=== PATIENT | male | born 1950 | race Caucasian/White ===

== ENCOUNTER 2019-09-12 16:20 | Emergency (ER) | payer OTHER ==
[2019-09-12] MEDS ORDERED: MORPHINE 2 MG/ML SYR ONE (17:21)
[2019-09-12] MEDS ORDERED: ONDANSETRON 4 MG/2 ML VIAL ONE (17:21)
[2019-09-12] MEDS ORDERED: FAMOTIDINE 20 MG/2 ML VIAL IV ONE (17:21)
[2019-09-12] MEDS ORDERED: NA CHLORIDE 0.9% 1,000 ML ONE (17:21)
[2019-09-12 17:23] LABS: Absolute Lymphocytes (CBC) 0.8 K/uL (0.7-4.9); Basophils % 0.7 % (0-1.3); Hematocrit 44.7 % (39.6-49.0); Lymphocytes % 7.3 % (15.3-44.8); MPV 7.9 fL (7.6-11.3); RBC Red Blood Cell Count 4.88 M/uL (4.33-5.43)
--- NOTE | 2019-09-12 17:32 | RAD REPORT ---
EXAM DESCRIPTION: RAD - Chest Single View - 09/12/2019 5:19 pm CLINICAL HISTORY: ABDOMINAL DISTENTION Chest pain. COMPARISON: No comparisons FINDINGS: Portable technique limits examination quality. The lungs are grossly clear. The heart is normal in size. No displaced fractures. IMPRESSION: No acute intrathoracic process suspected.
[2019-09-12 17:48] LABS: ALT/SGPT 29 U/L (12-78); AST/SGOT 16 U/L (15-37); Albumin 3.9 g/dL (3.4-5.0); Alkaline Phosphatase 66 U/L (45-117); BUN Blood Urea Nitrogen 12 mg/dL (7-18); Bicarbonate 27 mmol/L (21-32); Bilirubin Direct 0.3 mg/dL (0-0.2); Bilirubin Total 0.8 mg/dL (0.2-1.0); Glucose Level 118 mg/dL (74-106); Lipase 84 U/L (73-393); Magnesium 2.1 mg/dL (1.8-2.4); NT PRO-BNP 244 pg/mL (<125); Potassium 4.1 mmol/L (3.5-5.1); Protein, Total 7.4 g/dL (6.4-8.2); Sodium Level 139 mmol/L (136-145); Troponin (Emerg Dept Use Only) < 0.02 ng/mL (0.0-0.045)
[2019-09-12 17:51] LABS: Protime INR 0.96
--- NOTE | 2019-09-12 18:18 | RAD REPORT ---
EXAM DESCRIPTION: US - Abdomen Exam Limited - 09/12/2019 5:53 pm CLINICAL HISTORY: ABD PAIN COMPARISON: No comparisons FINDINGS: The gallbladder demonstrates multiple shadowing gallstones No pericholecystic fluid or gal lbladder wall thickening. The common bile duct is normal measuring 3 mm. The liver demonstrates no findings of intrahepatic biliary dilatation. IMPRESSION: Cholelithiasis.
--- NOTE | 2019-09-12 18:22 | ER ---
Nurse's Notes [facility] Name: Puneet Ferrer Age: 69 yrs Sex: Male : 1950 Arrival Date: 09/12/2019 Time: 16:23 Bed 24 Private MD: Diagnosis: Abdominal tenderness;Cholelithiasis Presentation: 09/12 16:28 Presenting complaint: Patient states: abd pain since this morning, nausea. Transition la1 of care: patient was not received from another setting of care. Onset of symptoms was September 12, 2019. Risk Assessment: Do you want to hurt yourself or someone else? Patient reports no desire to harm self or others. Initial Sepsis Screen: Does the patient meet any 2 criteria? HR > 90 bpm. Does the patient have a suspected source of infection? No. Patient's initial sepsis screen is negative. Care prior to arrival: None. 16:28 Method Of Arrival: Ambulatory la1 16:28 Acuity: KARLA 3 la1 Historical: - Allergies: 16:29 NKDA; la1 - PMHx: 16:29 None; la1 - Immunization history:: Adult Immunizations up to date. - Social history:: Smoking status: Patient/guardian denies using tobacco. - Family history:: not pertinent. - Ebola Screening: : No symptoms or risks identified at this time. Screenin:45 Abuse screen: Denies threats or abuse. Denies injuries from another. Nutritional aj1 screening: No deficits noted. Tuberculosis screening: No symptoms or risk factors identified. Fall Risk None identified. Assessment: 16:45 General: Appears in no apparent distress. comfortable, Behavior is calm, cooperative, aj1 appropriate for age. Pain: Complains of pain in right upper quadrant and epigastric area Pain does not radiate. Neuro: Level of Consciousness is awake, alert, obeys commands, Oriented to person, place, time, situation. Cardiovascular: Patient's skin is warm and dry. Respiratory: Airway is patent Respiratory effort is even, unlabored, Respiratory pattern is regular, symmetrical. GI: Abdomen is distended, Bowel sounds present X 4 quads. Abdomen is tender to palpation in right upper quadrant and epigastric area Reports upper abdominal pain, bloating, nausea, Patient currently denies diarrhea, vomiting. : No signs and/or symptoms were reported regarding the genitourinary system. EENT: No signs and/or symptoms were reported regarding the EENT system. Derm: Skin is pink, warm \T\ dry. Rash noted that is red, on face. Musculoskeletal: No signs and/or symptoms reported regarding the musculoskeletal system. Circulation, motion, and sensation intact. 17:36 Reassessment: Patient appears in no apparent distress at this time. No changes from aj1 previously documented assessment. Patient and/or family updated on plan of care and expected duration. Pain level reassessed. Patient is alert, oriented x 3, equal unlabored respirations, skin warm/dry/pink. 18:30 Reassessment: Patient appears in no apparent distress at this time. No changes from aj1 previously documented assessment. Patient and/or family updated on plan of care and expected duration. Pain level reassessed. Patient is alert, oriented x 3, equal unlabored respirations, skin warm/dry/pink. 19:30 Reassessment: Patient states that he does not want to be admitted over night. He would aj1 like to go home and follow up with Dr. Perez. Notified Dr. Perez of patient request, who will go see the patient. 19:45 Reassessment: Dr. Perez at bedside to evaluate patient. aj1 20:03 Reassessment: Patient is okay to be discharged home, patient will report to day surgery aj1 at 0900 tomorrow for laproscopic cholecystectomy. yard labor supervisor VANDANA Plascencia, notified and states that he will place patient on surgery schedule. Patient is concerned about getting a ride home after surgery tomorrow. Patient states that he can call himself a cab, Notified oracle data warehouse developer, VANDANA Plascencia who spoke with orthotic/prosthetic practitioner to approve patient calling himself a cab after surgery. 20:05 Reassessment: Patient to finish Zosyn infusion prior to discharge per Dr. Perez. aj1 21:03 Reassessment: Patient appears in no apparent distress at this time. No changes from aj1 previously documented assessment. Patient and/or family updated on plan of care and expected duration. Pain level reassessed. Patient is alert, oriented x 3, equal unlabored respirations, skin warm/dry/pink. Vital Signs: 16:29 BP 144 / 97; Pulse 115; Resp 16; Temp 99.2; Pulse Ox 100% on R/A; Weight 99.79 kg; la1 Height 5 ft. 11 in. (180.34 cm); 17:37 BP 112 / 81; Pulse 93; Resp 18; Pulse Ox 95% on R/A; aj1 18:30 BP 153 / 94; Pulse 93; Resp 18; Pulse Ox 98% on R/A; aj1 19:30 BP 149 / 87; Pulse 91; Resp 18; Pulse Ox 100% on R/A; aj1 20:30 BP 145 / 90; Pulse 90; Resp 18; Pulse Ox 97% on R/A; aj1 16:29 Body Mass Index 30.68 (99.79 kg, 180.34 cm) la1 ED Course: 16:23 Patient arrived in ED. as 16:29 Triage completed. la1 16:29 Arm band placed on left wrist. la1 16:30 Shahid Tijerina MD is Attending Physician. virgen 16:37 Cristina Falcon, RN is Primary Nurse. aj1 16:45 No provider procedures requiring assistance completed. aj1 17:15 Initial lab(s) drawn, by vt, sent to lab. Inserted saline lock: 20 gauge in right jp3 wrist, using aseptic technique. Patient maintains SpO2 saturation greater than 95% on room air. 17:16 Bed in low position. Call light in reach. Side rails up X 1. Side rails up X2. Warm jp3 blanket given. Verbal reassurance given. campus monitor on. Pulse ox on. NIBP on. 17:16 Basic Metabolic Panel Sent. jp3 17:25 XRAY Chest (1 view) In Process Unspecified. EDMS 17:35 EKG done, by ED staff, reviewed by Shahid Tijerina MD. jp3 17:53 US Abdomen Limited In Process Unspecified. EDMS 18:09 Puneet Perez MD is Hospitalizing Provider. ivrgen 20:30 Puneet Perez MD is Referral Physician. virgen 20:30 Referral Physician role handed off by Puneet Perez MD virgen 20:30 Puneet Perez MD is Referral Physician. virgen 20:59 IV discontinued, intact, bleeding controlled, No redness/swelling at site. Pressure aj1 dressing applied. Administered Medications: 17:28 Drug: NS 0.9% 1000 ml Route: IV; Rate: 1 bolus; Site: right wrist; aj1 21:02 Follow up: IV Status: Completed infusion; IV Intake: 1000ml aj1 17:29 Drug: Pepcid 20 mg Route: IVP; Site: right wrist; aj1 18:30 Follow up: Response: No adverse reaction aj1 17:29 Drug: morphine 2 mg {Note: RASS score 0, patient is alert.} Route: IVP; Site: right aj1 wrist; 18:30 Follow up: Response: No adverse reaction; RASS: Alert and Calm (0) aj1 17:29 Drug: Zofran 4 mg Route: IVP; Site: right wrist; aj1 18:30 Follow up: Response: No adverse reaction aj1 18:43 Drug: Zosyn 3.375 grams Route: IVPB; Infused Over: 60 mins; Site: right wrist; aj1 21:03 Follow up: IV Status: Completed infusion; IV Intake: 100ml aj1 Intake: 21:02 IV: 1000ml; Total: 1000ml. aj1 21:03 IV: 100ml; Total: 1100ml. aj1 Outcome: 18:22 Decision to Hospitalize by Provider. [facility] 20:31 Discharge ordered by . [facility] 21:01 Discharged to home ambulatory. aj1 21:01 Condition: good 21:01 Discharge instructions given to patient, Instructed on discharge instructions, follow up and referral plans. medication usage, Demonstrated understanding of instructions, follow-up care, medications, Prescriptions given X 3. 21:03 Patient left the ED. aj1 Signatures: Dispatcher [employer] EDMS Cristina Falcon RN RN aj1 Shahid Tijerina MD MD cha Martinez, Amelia as Attema, Lee, RN RN la1 Simone Samuel jp3
--- NOTE | 2019-09-12 18:23 | EDPHYS ---
Physician Documentation [facility] Name: Puneet Ferrer Age: 69 yrs Sex: Male : 1950 Arrival Date: 09/12/2019 Time: 16:23 Bed 24 Private MD: ED Physician Shahid Tijerina HPI: 09/12 16:51 This 69 yrs old Male presents to ER via Ambulatory with complaints of virgen Epigastric Pain, Abdominal Pain. 16:51 The patient presents with abdominal pain in the epigastric area, in the upper abdomen, virgen abdominal distention in the upper abdomen, in the lower abdomen. Onset: The symptoms/episode began/occurred 1 day(s) ago. The symptoms do not radiate. Associated signs and symptoms: none. The symptoms are described as constant, crampy. Modifying factors: The symptoms are alleviated by nothing, the symptoms are aggravated by nothing. Severity of pain: At its worst the pain was moderate in the emergency department the pain. The patient has not experienced similar symptoms in the past. Historical: - Allergies: 16:29 NKDA; la1 - PMHx: 16:29 None; la1 - Immunization history:: Adult Immunizations up to date. - Social history:: Smoking status: Patient/guardian denies using tobacco. - Family history:: not pertinent. - Ebola Screening: : No symptoms or risks identified at this time. ROS: 16:51 Constitutional: Negative for fever, chills, and weight loss, Eyes: Negative for injury, virgen pain, redness, and discharge, ENT: Negative for injury, pain, and discharge, Neck: Negative for injury, pain, and swelling, Cardiovascular: Negative for chest pain, palpitations, and edema, Respiratory: Negative for shortness of breath, cough, wheezing, and pleuritic chest pain, Back: Negative for injury and pain, : Negative for injury, bleeding, discharge, and swelling, MS/Extremity: Negative for injury and deformity, Skin: Negative for injury, rash, and discoloration, Neuro: Negative for headache, weakness, numbness, tingling, and seizure, Psych: Negative for depression, anxiety, suicide ideation, homicidal ideation, and hallucinations, Allergy/Immunology: Negative for hives, rash, and allergies, Hematologic/Lymphatic: Negative for swollen nodes, abnormal bleeding, and unusual bruising. 16:51 Abdomen/GI: Positive for abdominal pain, of the epigastric area and right upper quadrant. Exam: 16:51 Constitutional: This is a well developed, well nourished patient who is awake, alert, virgen and in no acute distress. Head/Face: Normocephalic, atraumatic. Eyes: Pupils equal round and reactive to light, extra-ocular motions intact. Lids and lashes normal. Conjunctiva and sclera are non-icteric and not injected. Cornea within normal limits. Periorbital areas with no swelling, redness, or edema. ENT: Nares patent. No nasal discharge, no septal abnormalities noted. Tympanic membranes are normal and external auditory canals are clear. Oropharynx with no redness, swelling, or masses, exudates, or evidence of obstruction, uvula midline. Mucous membranes moist. Neck: Trachea midline, no thyromegaly or masses palpated, and no cervical lymphadenopathy. Supple, full range of motion without nuchal rigidity, or vertebral point tenderness. No Meningismus. Chest/axilla: Normal chest wall appearance and motion. Nontender with no deformity. No lesions are appreciated. Cardiovascular: Regular rate and rhythm with a normal S1 and S2. No gallops, murmurs, or rubs. Normal PMI, no JVD. No pulse deficits. Respiratory: Lungs have equal breath sounds bilaterally, clear to auscultation and percussion. No rales, rhonchi or wheezes noted. No increased work of breathing, no retractions or nasal flaring. Back: No spinal tenderness. No costovertebral tenderness. Full range of motion. Male : Normal genitalia with no discharge or lesions. Skin: Warm, dry with normal turgor. Normal color with no rashes, no lesions, and no evidence of cellulitis. MS/ Extremity: Pulses equal, no cyanosis. Neurovascular intact. Full, normal range of motion. Neuro: Awake and alert, GCS 15, oriented to person, place, time, and situation. Cranial nerves II-XII grossly intact. Motor strength 5/5 in all extremities. Sensory grossly intact. Cerebellar exam normal. Normal gait. Psych: Awake, alert, with orientation to person, place and time. Behavior, mood, and affect are within normal limits. 16:51 Abdomen/GI: Inspection: distension, Bowel sounds: normal, active, Palpation: mild abdominal tenderness, in the epigastric area and right upper quadrant, Liver: no appreciated palpable abnormalities, Hernia: not appreciated. Vital Signs: 16:29 BP 144 / 97; Pulse 115; Resp 16; Temp 99.2; Pulse Ox 100% on R/A; Weight 99.79 kg; la1 Height 5 ft. 11 in. (180.34 cm); 17:37 BP 112 / 81; Pulse 93; Resp 18; Pulse Ox 95% on R/A; aj1 18:30 BP 153 / 94; Pulse 93; Resp 18; Pulse Ox 98% on R/A; aj1 19:30 BP 149 / 87; Pulse 91; Resp 18; Pulse Ox 100% on R/A; aj1 20:30 BP 145 / 90; Pulse 90; Resp 18; Pulse Ox 97% on R/A; aj1 16:29 Body Mass Index 30.68 (99.79 kg, 180.34 cm) la1 MDM: 16:30 Patient medically screened. [facility] 16:56 Data reviewed: vital signs, nurses notes, lab test result(s), EKG, radiologic studies, [facility] plain films. 20:28 ED course: dr fuentes saw and examined the patient, want patient dc and to follow up in [facility] the morning. 09/12 16:49 Order name: Basic Metabolic Panel [facility] 09/12 16:49 Order name: CBC with Diff; Complete Time: 17:43 [facility] 09/12 16:49 Order name: LFT's; Complete Time: 18:07 [facility] 09/12 16:49 Order name: Magnesium; Complete Time: 18:07 [facility] 09/12 16:49 Order name: NT PRO-BNP; Complete Time: 18:07 [facility] 09/12 16:49 Order name: PT-INR; Complete Time: 18:07 [facility] 09/12 16:49 Order name: Troponin (emerg Dept Use Only); Complete Time: 18:07 [facility] 09/12 16:49 Order name: XRAY Chest (1 view); Complete Time: 18:07 [facility] 09/12 16:49 Order name: Lipase; Complete Time: 18:07 [facility] 09/12 16:49 Order name: US Abdomen Limited; Complete Time: 20:32 [facility] 09/12 16:50 Order name: Basic Metabolic Panel; Complete Time: 18:07 [facility] 09/12 16:49 Order name: EKG; Complete Time: 16:51 [facility] 09/12 16:49 Order name: Cardiac monitoring; Complete Time: 17:13 [facility] 09/12 16:49 Order name: EKG - Nurse/Tech; Complete Time: 17:30 [facility] 09/12 16:49 Order name: IV Saline Lock; Complete Time: 17:13 [facility] 09/12 16:49 Order name: Labs collected and sent; Complete Time: 17:14 [facility] 09/12 16:49 Order name: O2 Per Protocol; Complete Time: 17:14 [facility] 09/12 16:49 Order name: O2 Sat Monitoring; Complete Time: 17:14 [facility] 09/12 18:19 Order name: CONS Physician Consult EDMS Administered Medications: 17:28 Drug: NS 0.9% 1000 ml Route: IV; Rate: 1 bolus; Site: right wrist; [facility] 21:02 Follow up: IV Status: Completed infusion; IV Intake: 1000ml [facility] 17:29 Drug: Pepcid 20 mg Route: IVP; Site: right wrist; [facility] 18:30 Follow up: Response: No adverse reaction [facility] 17:29 Drug: morphine 2 mg {Note: RASS score 0, patient is alert.} Route: IVP; Site: right aj wrist; 18:30 Follow up: Response: No adverse reaction; RASS: Alert and Calm (0) aj1 17:29 Drug: Zofran 4 mg Route: IVP; Site: right wrist; aj1 18:30 Follow up: Response: No adverse reaction [facility] 18:43 Drug: Zosyn 3.375 grams Route: IVPB; Infused Over: 60 mins; Site: right wrist; aj1 21:03 Follow up: IV Status: Completed infusion; IV Intake: 100ml aj Disposition: 09/12/19 20:31 Discharged to Home. Impression: Abdominal tenderness, Cholelithiasis. - Condition is Stable. - Discharge Instructions: Abdominal Pain, Adult, Cholelithiasis, Cholelithiasis, [id number], Abdominal Pain, Adult, [id number]. - Prescriptions for Augmentin 875- 125 mg Oral Tablet - take 1 tablet by ORAL route every 12 hours for 7 days; 14 tablet. Bentyl 20 mg Oral Tablet - take 1 tablet by ORAL route every 6 hours As needed; 20 tablet. Pepcid 20 mg Oral Tablet - take 1 tablet by ORAL route every 12 hours for 10 days; 20 tablet. - Medication Reconciliation Form, Thank You Letter, Antibiotic Education, Prescription Opioid Use form. - Follow up: Private Physician; When: Tomorrow; Reason: Recheck today's complaints, Continuance of care, Re-evaluation by your physician. Follow up: Puneet Fuentes MD; When: 2 - 3 days; Reason: Recheck today's complaints, Continuance of care, Re-evaluation by your physician. Follow up: Puneet Fuentes MD; When: Tomorrow; Reason: Recheck today's complaints, Continuance of care, Re-evaluation by your physician. - Problem is new. - Symptoms have improved. Signatures: Dispatcher [employer] EDMS Cristina Falcon RN RN aj1 Shahid Tijerina MD MD cha Attema, Lee RN RN la1 Corrections: (The following items were deleted from the chart) 20:27 18:22 Hospitalization Ordered by Puneet Fuentes MD for Inpatient Admission. Preliminary virgen diagnosis is Abdominal tenderness; Cholecystitis; Cholelithiasis. Bed requested for Telemetry/MedSurg (Inpatient). Status is Inpatient Admission. Condition is Stable. Problem is new. Symptoms have improved. UTI on Admission? No. virgen 21:03 20:31 09/12/2019 20:31 Discharged to Home. Impression: Abdominal tenderness; aj1 Cholelithiasis. Condition is Stable. Forms are Medication Reconciliation Form, Thank You Letter, Antibiotic Education, Prescription Opioid Use. Follow up: Private Physician; When: Tomorrow; Reason: Recheck today's complaints, Continuance of care, Re-evaluation by your physician. Follow up: Puneet Fuentes; When: Tomorrow; Reason: Recheck today's complaints, Continuance of care, Re-evaluation by your physician. Problem is new. Symptoms have improved. virgen
[2019-09-12] MEDS ORDERED: PIPER/TAZO/NS 3.375gm 3.375 GM/100 ML BAG ONE (18:31)
--- NOTE | 2019-09-12 20:22 | P.CNS ---
Date of Consult: 09/12/19 PC: This 69-year-old male presents emergency room with severe right upper quadrant abdominal pain for diagnosis and treatment. HPC: Patient been having intermittent pain for the last few weeks. Pain has intensified and became very severe today. He came in to get it checked out. PMH: Enlarged prostate PSHx: Previous knee surgery SOC: Denies any allergies SYS REVIEW: No cough, wheeze, shortness of breath. No chest pain or palpitations. Denies any change in bowel habit. Patient is very independent, lives by himself, and has a puppy dog at home locked up in a cage.. O/E awake alert vital signs are stable comfortable at the moment HEENT: Not jaundiced Chest: Clear ABD: Soft nontender at the moment LOCO: Intact DATA: Has documented gallstones, white cell count 11,000 IMPRESSION: The sedation as coli lithiasis with biliary colic. PLAN: I was wanting to admit this patient to the hospital and prepping for surgery in the morning. He has had problem as he has an animal at home that is 7-month-old and he does not 1 0 leave it alone. He has requested that he be allowed to go to the house take care of his animal and return in the morning for outpatient surgery. He is currently stable at the moment, his vital signs remain stable. He would also like to pickle pumper his home medications and by some groceries so he can take care of himself after surgery as he has no one at home. (there are neighbors around). He has been scheduled for the OR in the morning, and he will come in for his surgery. Obviously if anything changes she will immediately call 911 and allowed them to bring him in, but he is happy with this current plan.
[2019-09-12 21:34] VITALS: TEMP 99.2
[2019-09-12 21:38] VITALS: BP 145/90; O2SAT 97
--- NOTE | 2019-09-13 05:30 | EKG ---
Test Date: 2019-09-12 Test Time: 17:23:19 Industrial Machine Operator: KAVIN MEASUREMENT RESULTS: Intervals: Rate: 96 NV: 176 QRSD: 86 QT: 368 QTc: 464 [place]: P: 50 NV: 176 QRS: -12 T: 33 INTERPRETIVE STATEMENTS: Sinus rhythm with premature atrial complexes Otherwise normal ECG No previous ECG available for comparison Electronically Signed On 09-13-19 05:30:08 HOP FARMER by Richard Alarcon
== END 2019-09-12 21:03 | disposition home or self-care (01) ==
LOC: ER 16:20 → ERHOLD 18:13 → UNDOADMIN 18:13
DX: K80.20 Calculus of gallbladder without cholecystitis without obstruction (principal)
CPT/HCPCS: 96365; 96361; 93005; 85025; 80048; 36415; 83735; 85610; 80076; 84484; 83690; 83880; 71045; 76705; 96375; 99285; 96366; J2543; J2270; J7030; J2405

== ENCOUNTER 2019-09-13 09:45 | Day surgery (SDC) | payer OTHER ==
[2019-09-13] MEDS ORDERED: CEFOXITIN/SWI 1gm 1 GM/10 ML SYR ONE (10:12)
[2019-09-13] MEDS ORDERED: Ringers Lactate 1,000 ML IV ONE ×2 (10:12→13:10)
[2019-09-13] MEDS ORDERED: dexAMETHasone 10 MG/ML VIAL ONE (10:31)
[2019-09-13] MEDS ORDERED: FENTANYL CITR 100 MCG/2 ML ONE (10:31)
[2019-09-13] MEDS ORDERED: LIDOCAINE 2% MPF 5 ML VIAL ONE (10:31)
[2019-09-13] MEDS ORDERED: ROCURONIUM 50 MG/5 ML VIAL IV ONE (10:31)
[2019-09-13] MEDS ORDERED: MIDAZOLAM HCL 2 MG/2 ML INJ ONE (10:31)
[2019-09-13] MEDS ORDERED: GLYCOPYRROLATE 0.2 MG/ML SYR ONE (10:31)
[2019-09-13] MEDS ORDERED: PROPOFOL 200 MG/20 ML VIAL IV ONE (10:31)
[2019-09-13] MEDS ORDERED: KETOROLAC 30 MG/ML INJ ONE (13:46)
[2019-09-13] MEDS ORDERED: MORPHINE 10 MG/ML VIAL ONE (14:03)
--- NOTE | 2019-09-13 14:16 | P.OP ---
Preoperative diagnosis: Cholecystitis with cholelithiasis, biliary colic Postoperative diagnosis: The same Primary procedure: Laparoscopic cholecystectomy Secondary procedure: Cholangiogram Anesthesia: General Estimated blood loss: Less than 10 cc Specimen: Gallbladder and contents Operative Technique: The patient brought the operating room placed supine on the table. After the induction of adequate general endotracheal anesthesia, the area of the abdomen was prepped with a DuraPrep solution, he was draped in usual aseptic manner. A subumbilical incision was made. This was brought down through the skin and subcutaneous tissue. The Visiport was now used to enter the peritoneal cavity and created pneumoperitoneum to approximately 12 mm of mercury. Under direct vision a 5 mm trocar was placed in the upper midline, and 2 other 5 mm trocars on the right lateral side of the abdomen. The patient was now placed in reverse Trendelenburg. He was then rolled to the left. We could visualize the right upper quadrant. There was a marked inflammatory process just beneath the right lobe of the liver. The omentum was adherent along this inferior edge. Gentle dissection allowed it to be dissected free from the liver edge. It was markedly adherent to the gallbladder itself. The omentum was now dissected off of this using again blunt sharp dissection. We were able to clear Jarred's pouch. At this point with the gallbladder was markedly distended its contents were aspirated from the gallbladder. A grasper was now placed up on the fundus and a the bone by Jarred's pouch. Applying lateral traction we were able to clear and dissected the cystic duct and artery. Having obtained the critical view a clip was placed between the gallbladder and the cystic duct. An opening was made into the cystic duct through which we obtained a cholangiogram the cholangiogram demonstrated good flow contrast into the duodenum. Pressure injection allowed us to demonstrate the upper radicals on the right side. The left side did not fill. However there were no filling defects noted. The catheter was now removed from the cystic duct. Clips were placed on the distal portion of the cystic duct which was fully transected. Cystic artery was clipped and divided. The gallbladder was now dissected free of the liver bed, placed into an Endo- Catch, and brought out through the umbilical trocar site. Attention was turned towards the emboli kiss. The patient did have a previous umbilical hernia with a wide emboli kiss. The fascia was approximated using 3 interrupted absorbable sutures. The peritoneal cavity was now inspected. The irrigating fluid was aspirated from the peritoneal cavity. A EYAD block was done of the anterior abdominal wall on both left and right sides. The trocars were now removed, the pneumoperitoneum collapse, and the sutures tied. Apple were then applied to the skin. With the procedure he was in a stable condition when sent to the recovery room. Needle sponge instrument count were correct. No drains were placed. Complications: None Transferred to: Recovery Room Condition: Good
[2019-09-13] MEDS ORDERED: ONDANSETRON 4 MG/2 ML VIAL ONE (14:23)
--- NOTE | 2019-09-13 14:50 | RAD REPORT ---
EXAM DESCRIPTION: RAD - Cholangiogram Oper-Xray Or - 09/13/2019 2:44 pm CLINICAL HISTORY: LAP BRIANNE COMPARISON: Abdomen Exam Limited dated 09/12/2019 FINDINGS: Cystic duct injection was performed by referring physician. No retained stone is evident i n the CBD. Total fluoro time: 0.2 minutes Five fluoroscopic images are submitted. IMPRESSION: No evidence of retained common duct stone.
[2019-09-13 15:43] VITALS: TEMP 98.7
[2019-09-13] MEDS ORDERED: HYDROCODONE/APAP 7.5/325 MG TAB ONE (16:00)
[2019-09-13 16:11] VITALS: O2SAT 95
[2019-09-13 17:22] VITALS: BP 136/78
== END 2019-09-13 17:20 | disposition home or self-care (01) ==
LOC: OR 09:45
PROVIDERS: ATTEND Surgery
PROC: 0FT44ZZ Resection of Gallbladder, Percutaneous Endoscopic Approach (ICD-10-PCS; principal; 2019-09-13 11:30)
DX: K80.12 Calculus of gallbladder with acute and chronic cholecystitis without obstruction (principal); M19.90 Unspecified osteoarthritis, unspecified site
CPT/HCPCS: 88304; 74300; 47562; J2704; J2250; J3010; J1100; J7120 ×2; J2405

== ENCOUNTER 2024-05-25 12:11 | Inpatient (IN) | payer OTHER ==
[2024-05-25 12:57] LABS: Absolute Basophils 0.1 K/uL (0-0.5); Absolute Eosinophils 0.3 K/uL (0-0.5); Absolute Lymphocytes (CBC) 0.8 K/uL (0.7-4.9); Absolute Monocytes 0.8 K/uL (0.1-1.3); Absolute Neutrophil 6.5 K/uL (1.8-8.0); Basophils % 0.7 % (0-1.3); Eosinophils % 3.5 % (0-4.4); Hematocrit 39.2 % (39.6-49.0); Hemoglobin 12.6 g/dL (13.6-17.9); MCH 29.5 pg (27.0-35.0); MCHC 32.2 g/dL (32.0-36.0); MCV 91.7 fL (80-100); MPV 8.2 fL (7.6-11.3); Monocytes % 9.1 % (3.3-12.3); Neutrophils % 77.7 % (41.7-73.7); Platelets 271 thou/uL (152-406); RBC Red Blood Cell Count 4.28 M/uL (4.33-5.43); Red Cell Distribution Width 13.3 % (12.1-15.2)
[2024-05-25 13:21] LABS: Albumin 3.5 g/dL (3.4-5.0); Albumin/Globulin Ratio 0.9 (1.1-1.8); Anion Gap 10.3 mEq/L (5.0-15.0); Bilirubin Total 0.7 mg/dL (0.2-1.0); Globulin 3.9 g/dL (2.3-3.5); Potassium 4.3 mEq/L (3.5-5.1); Protein, Total 7.4 g/dL (6.4-8.2)
[2024-05-25 13:30] LABS: Specific Gravity 1.007 (1.005-1.030); Sqamous Epithelial None Seen /HPF (None Seen); Urine Bacteria <20 /HPF (<20); Urine Bilirubin NEGATIVE (Negative); Urine Blood Negative (Negative); Urine Clarity Clear (Clear); Urine Color Colorless (Yellow); Urine Culture Reflex Order NOT NEEDED; Urine Glucose NEGATIVE (Negative); Urine Ketones NEGATIVE (Negative); Urine Microscopic Reflex YN ORDER UMIC; Urine Nitrite NEGATIVE (Negative); Urine Protein NEGATIVE (Negative); Urine RBC <5 /HPF (None Seen); Urine Urobilinogen Normal (Normal); Urine WBC <5 /HPF (<5)
--- NOTE | 2024-05-25 13:44 | ER ---
Nurse's Notes [facility] Name: Puneet Ferrer Age: 74 yrs Sex: Male : 1950 Arrival Date: 05/25/2024 Time: 12:11 Bed 11 Private MD: Diagnosis: Acute kidney failure, unspecified Presentation: 05/25 12:27 Chief complaint: Patient states: Sent to the ER by PCP for abnormal Kidney function cm10 labs. Pt states that he has never been told that he issues with kidneys. Coronavirus screen: Client denies travel out of the [place] in the last 14 days. At this time, the client does not indicate any symptoms associated with coronavirus-19. Ebola Screen: Patient denies travel to an Ebola-affected area in the 21 days before illness onset. No symptoms or risks identified at this time. Initial Sepsis Screen: Does the patient meet any 2 criteria? No. Patient's initial sepsis screen is negative. Does the patient have a suspected source of infection? No. Patient's initial sepsis screen is negative. Risk Assessment: Do you want to hurt yourself or someone else? Patient reports no desire to harm self or others. Onset of symptoms was May 25, 2024. 12:27 Method Of Arrival: Ambulatory cm10 12:27 Acuity: KARLA 3 cm10 Triage Assessment: 12:29 General: Appears in no apparent distress. comfortable, Behavior is calm, cooperative. cm10 Pain: Denies pain. Neuro: No deficits noted. Level of Consciousness is awake, alert, obeys commands, Oriented to person, place, time, situation, Appropriate for age. Respiratory: No deficits noted. Airway is patent Respiratory effort is even, unlabored, Respiratory pattern is regular, symmetrical. Historical: - Allergies: 12:29 NKDA; cm10 - PMHx: 12:29 None; cm10 - Immunization history:: Adult Immunizations up to date. - Infectious Disease History:: Denies. - Social history:: Smoking status: Patient denies any tobacco usage or history of. - Family history:: not pertinent. - Hospitalizations: : No recent hospitalization is reported. Assessment: 19:59 General: Appears in no apparent distress. uncomfortable, Behavior is calm, cooperative. kj2 Pain: Complains of pain in prostate Pain currently is 5 out of 10 on a pain scale. Neuro: Level of Consciousness is awake, alert, obeys commands. Cardiovascular: Patient's skin is warm and dry. Respiratory: Airway is patent Respiratory effort is unlabored. : Ruffin in place. Vital Signs: 12:27 BP 171 / 100; Pulse 102; Resp 15; Temp 98.3; Pulse Ox 96% on R/A; Weight 100.24 kg; cm10 Height 5 ft. 11 in. ; Pain 0/10; 20:02 BP 165 / 89; Pulse 92; Resp 18; Pulse Ox 99% ; kj2 12:27 Body Mass Index 30.82 (100.24 kg, 180.34 cm) cm10 12:27 Pain Scale: Adult cm10 ED Course: 12:20 Patient arrived in ED. mg5 12:20 Best Nathan MD is Attending Physician. rn 12:29 Triage completed. cm10 12:30 Arm band placed on Patient placed in waiting room. cm10 12:39 Initial lab(s) drawn, by me, sent to lab. Inserted saline lock: 22 gauge in right cm10 antecubital area, using aseptic technique. Blood collected. Flushed with 10 mL NS. 13:44 Sesar Lebron is Hospitalizing Provider. rn 16:08 CT Stone Protocol In Process Unspecified. EDMS 17:14 Ruffin cath inserted, using sterile technique, 16 Fr., by az, balloon inflated, to em1 gravity drainage, returned clear yellow urine. Patient tolerated well. 19:58 Maribel Bansal, RN is Primary Nurse. kj2 Administered Medications: No medications were administered Outcome: 13:44 Decision to Hospitalize by Provider. rn 22:10 Patient left the ED. jb4 Signatures: Dispatcher [employer] EDMS Best Nathan MD MD rn Martinez, Eric em1 Puneet Rizzo RN RN jb4 Marilynn Dupree RN RN cm10 Gloria Brower mg5 Maribel Bansal, VANDANA RN kj2 Corrections: (The following items were deleted from the chart) 20:02 19:59 General: kj2 kj2
--- NOTE | 2024-05-25 13:44 | EDPHYS ---
Physician Documentation [facility] Name: Puneet Ferrer Age: 74 yrs Sex: Male : 1950 Arrival Date: 05/25/2024 Time: 12:11 Bed 11 Private MD: ED Physician Best Nathan HPI: 05/25 13:38 This 74 yrs old Male presents to ER via Ambulatory with complaints of Abnormal visual journalist Results. 13:38 Patient reports sent in by nurse practitioner Janie for abnormal renal function rn studies that were obtained on Thursday. Patient reports COVID a month ago and noticed darker urine and decreased urination shortly after, now clearing and becoming normal again. Reports generalized fatigue and malaise. No fever or chills. No new medications or supplements.. The patient has not experienced similar symptoms in the past. The patient has been recently seen by a physician:. Historical: - Allergies: 12:29 NKDA; cm10 - PMHx: 12:29 None; cm10 - Immunization history:: Adult Immunizations up to date. - Infectious Disease History:: Denies. - Social history:: Smoking status: Patient denies any tobacco usage or history of. - Family history:: not pertinent. - Hospitalizations: : No recent hospitalization is reported. ROS: 13:38 Constitutional: Negative for fever, chills, and weight loss, Cardiovascular: Negative rn for chest pain, palpitations, and edema, Respiratory: Negative for shortness of breath, cough, wheezing, and pleuritic chest pain, Abdomen/GI: Negative for abdominal pain, nausea, vomiting, diarrhea, and constipation, Back: Negative for injury and pain, : Negative for injury, bleeding, discharge, and swelling, MS/Extremity: Negative for injury and deformity, Skin: Negative for injury, rash, and discoloration, Neuro: Negative for headache, weakness, numbness, tingling, and seizure, Exam: 13:38 Constitutional: This is a well developed, well nourished patient who is awake, alert, rn and in no acute distress. Head/Face: Normocephalic, atraumatic. Cardiovascular: Tachycardic, regular. No pulse deficits. Respiratory: No increased work of breathing, no retractions or nasal flaring. Abdomen/GI: Soft, non-tender MS/ Extremity: Pulses equal, no cyanosis. Neuro: Awake and alert, GCS 15 Vital Signs: 12:27 BP 171 / 100; Pulse 102; Resp 15; Temp 98.3; Pulse Ox 96% on R/A; Weight 100.24 kg; cm10 Height 5 ft. 11 in. ; Pain 0/10; 20:02 BP 165 / 89; Pulse 92; Resp 18; Pulse Ox 99% ; kj2 12:27 Body Mass Index 30.82 (100.24 kg, 180.34 cm) cm10 12:27 Pain Scale: Adult cm10 MDM: 12:21 Patient medically screened. rn 13:42 Differential Diagnosis acute kidney injury, dehydration. Data reviewed: vital signs, rn nurses notes, lab test result(s), and as a result, I will discharge patient. Counseling: I had a detailed discussion with the patient and/or guardian regarding the historical points, exam findings, and any diagnostic results supporting the discharge/admit diagnosis, lab results, the need for further work-up and treatment in the hospital. 16:46 ED course: CT shows bilateral hydronephrosis likely secondary to prostatomegaly. rn Patient has known prostate problems and takes tamsulosin. Patient reports has been urinating fine recently, able to urinate on command, and is actually been wearing depends lately. Will place Ruffin catheter for decompression and admit to hospital.. 05/25 12:39 Order name: CBC with Diff; Complete Time: 13:32 cm10 05/25 12:39 Order name: CMP; Complete Time: 13:32 cm10 05/25 12:39 Order name: Urinalysis w/ reflexes; Complete Time: 13:32 cm10 05/25 17:48 Order name: Creatine Phosphokinase [facility] 05/25 17:48 Order name: PTH Intact [facility] 05/25 17:48 Order name: Uric Acid [facility] 05/25 17:48 Order name: Basic Metabolic Panel [facility] 05/25 17:48 Order name: Basic Metabolic Panel [facility] 05/25 17:48 Order name: Basic Metabolic Panel [facility] 05/25 17:48 Order name: Basic Metabolic Panel [facility] 05/25 17:48 Order name: Basic Metabolic Panel [facility] 05/25 17:48 Order name: Basic Metabolic Panel [facility] 05/25 17:48 Order name: Basic Metabolic Panel [facility] 05/25 17:48 Order name: Basic Metabolic Panel [facility] 05/25 17:48 Order name: CBC with Automated Diff [facility] 05/25 17:48 Order name: CBC with Automated Diff [facility] 05/25 17:48 Order name: CBC with Automated Diff [facility] 05/25 17:49 Order name: CBC with Automated Diff EDMS 05/25 17:49 Order name: CBC with Automated Diff EDMS 05/25 17:49 Order name: CBC with Automated Diff ED[facility] 05/25 17:49 Order name: CBC with Automated Diff EDMS 05/25 17:49 Order name: CBC with Automated Diff [facility] 05/25 17:49 Order name: Magnesium [facility] 05/25 17:49 Order name: Magnesium EDMS 05/25 17:49 Order name: Magnesium EDMS 05/25 17:49 Order name: Magnesium EDMS 05/25 17:49 Order name: Magnesium EDMS 05/25 17:49 Order name: Magnesium EDMS 05/25 17:49 Order name: Magnesium EDMS 05/25 17:49 Order name: Magnesium EDMS 05/25 17:49 Order name: Phosphorus EDMS 05/25 17:49 Order name: Phosphorus EDMS 05/25 17:49 Order name: Phosphorus EDMS 05/25 17:49 Order name: Phosphorus EDMS 05/25 17:49 Order name: Phosphorus EDMS 05/25 17:49 Order name: Phosphorus EDMS 05/25 17:49 Order name: Phosphorus EDMS 05/25 17:49 Order name: Phosphorus EDMS 05/25 15:47 Order name: CT Stone Protocol; Complete Time: 16:37 rn 05/25 17:48 Order name: CONS Physician Consult EDMS 05/25 16:46 Order name: Augustin; Complete Time: 17:14 rn Administered Medications: No medications were administered Disposition Summary: 05/25/24 13:44 Hospitalization Ordered Notes: Hospitalization Status: Inpatient Admission rn Provider: Sesar Lebron rn Location: Telemetry/MedSurg (Inpatient) rn Condition: Stable rn Problem: new rn Symptoms: are unchanged rn Bed/Room Type: Standard rn Room Assignment: 213(05/25/24 21:09) rv1 Diagnosis - Acute kidney failure, unspecified rn Forms: - Medication Reconciliation Form rn - SBAR form rn - Leadership Thank You Letter rn Signatures: Dispatcher [employer] Best Kent MD MD rn Villegas Yolanda rv1 Marilynn Dupree RN RN cm10 Corrections: (The following items were deleted from the chart) 13:44 ambreen rv1
--- NOTE | 2024-05-25 13:51 | P.HP ---
Certification for Inpatient Patient admitted to: Inpatient With expected LOS: >2 Midnights Patient will require the following post-hospital care: None Practitioner: I am a practitioner with admitting privileges, knowledge of patient current condition, hospital course, and medical plan of care. Services: Services provided to patient in accordance with Admission requirements found in Title 42 Section 412.3 of the Code of Federal Regulations Patient History Date of Service: 05/25/24 Reason for admission: MICKY History of Present Illness: Puneet Ferrer is a 74 year old male with Pmhx left Femoral bypass, bilateral knee surgeries, who presented to the ED from his doctor's office where labs were drawn showing acute kidney injury. He reports using ibuprofen for his chronic knee pain. Puneet does not have a history of kidney problems but did have COVID one month ago. He reports wearing a pull up for incontinence. Ruffin catheter placed in the ED, UOP [address] on the floor. Laboratory evaluation BUN/Creatinine 43/5.17, GFR 11, UA negative for infectious process. CT abdomen reports "bilateral hydronephrosis and distended bladder with markedly enlarged prostate concerning for acute urinary retention. " Puneet will be admitted to hospitalist service for further treatment, Dr. Sosa consulted. Allergies No Known Drug Allerg Allergy (Uncoded 09/13/19 10:28) Unknown Home Medications: Fluticasone [Flonase 50mcg Nasal [place]] 120 sprays NS DAILY 09/13/19 Ibuprofen [Advil] 200 mg PO BEDTIME 09/13/19 - Past Medical/Surgical History Past Medical History: Patient denies medical history -: left femoral bypass -: bilateral knee surgeries - Social History Smoking Status: Never smoker Alcohol use: No CD- Drugs: No Review of Systems Unremarkable Physical Examination - Physical Exam General: Alert, In no apparent distress, Oriented x3 HEENT: Atraumatic, Normocephalic, PERRLA Neck: Supple, 2+ carotid pulse no bruit Respiratory: Clear to auscultation bilaterally, Normal air movement Cardiovascular: Normal pulses, Regular rate/rhythm, Normal S1 S2 Capillary refill: <2 Seconds Gastrointestinal: Normal bowel sounds, Soft and benign, No tenderness, Distended (obese) Musculoskeletal: No clubbing Integumentary: No rashes Neurological: Normal speech, Normal tone - Studies Laboratory Data (last 24 hrs) 05/25/24 05/25/24 12:42 12:42 WBC 8.40 Hgb 12.6 L Hct 39.2 L Plt Count 271 Sodium 143 Potassium 4.3 BUN 43 H Creatinine 5.17 H Glucose 103 Total Bilirubin 0.7 AST 15 ALT 22 Alkaline Phosphatase 78 Assessment and Plan - Plan Assessment and plan Bilateral hydronephrosis associated with distended bladder secondary to BPH MICKY secondary to obstruction from BPH - Ruffin placed in ED -Creatinine 5.17, monitor in the AM -Dr. Sosa consulted -CT abdomen with contrast -Ultrasound kidney ordered -PTH, uric acid, CK -UA negative for infectious process -Hold NSAIDs at this time -Will need follow-up outpatient with Dr. Jin Chronic bilateral knee pain s/p surgery Arthritis -Reports taking ibuprophen daily DVT ppx heparin Full code LOS 3 days Discharge Plan: Home Plan to discharge in: 48 Hours - Advance Directives Does patient have a Living Will: No Does patient have a Durable POA for Healthcare: No
--- NOTE | 2024-05-25 16:35 | RAD REPORT ---
EXAM DESCRIPTION: CTStone Protocol - 05/25/2024 4:06 pm CLINICAL HISTORY: eval for obstructive uropathy COMPARISON: CT ABD PELVIS W CONTRAST dated 06/10/2012 TECHNIQUE: CT of the abdomen and pelvis was performed without contrast. All CT scans are performed using dose optimization technique as appropriate and may include automated exposure control or mA/KV adjustment according to patient size. FINDINGS: Lower chest: Small pericardial effusion. Coronary calcifications. Liver: No acute abnormality or suspicious lesions. Biliary: No biliary ductal dilatation. Cholecystectomy . Stomach: No significant focal abnormality. Duodenum: No significant focal abnormality. Pancreas: No significant abnormality. Spleen: No significant abnormality. Adrenal: No suspicious lesions. Kidney/ureter: Bilateral hydronephrosis . No renal calculi. Retroperitoneum: No retroperitoneal adenopathy. Vascular: No aneurysm. Atherosclerosis . Bowel: No significant focal abnormality. Peritoneum: No ascites or free air. Fat containing left inguinal hernia. Bladder: Distended bladder. Reproductive: No adnexal masses. Bones: No acute fracture. Multilevel degenerative changes are present in the spine. Other: n/a IMPRESSION: Bilateral hydronephrosis and distended bladder with markedly enlarged prostate concernin g for acute urinary retention. Suggest Ruffin catheter decompression.
[2024-05-25] MEDS ORDERED: ACETAMINOPHEN 500 MG TAB PO PRN (17:42)
[2024-05-25] MEDS: HEPARIN 5000 UNIT/ML 1 ML VIAL SQ SCH (20:15)
[2024-05-25 22:11] LABS: Uric Acid 9.4 mg/dL (3.5-7.2)
[2024-05-26 06:02] LABS: Absolute Basophils 0.1 K/uL (0-0.5); Absolute Eosinophils 0.1 K/uL (0-0.5); Absolute Lymphocytes (CBC) 0.8 K/uL (0.7-4.9); Absolute Monocytes 0.7 K/uL (0.1-1.3); Absolute Neutrophil 9.2 K/uL (1.8-8.0); Basophils % 0.5 % (0-1.3); Eosinophils % 0.6 % (0-4.4); Hematocrit 43.6 % (39.6-49.0); Hemoglobin 14.3 g/dL (13.6-17.9); MCHC 32.7 g/dL (32.0-36.0); MCV 91.7 fL (80-100); MPV 8.6 fL (7.6-11.3); Monocytes % 6.4 % (3.3-12.3); Neutrophils % 85.5 % (41.7-73.7); Platelets 327 thou/uL (152-406); RBC Red Blood Cell Count 4.75 M/uL (4.33-5.43); Red Cell Distribution Width 13.6 % (12.1-15.2)
[2024-05-26 06:34] LABS: Anion Gap 13.5 mEq/L (5.0-15.0); Magnesium 2.4 mg/dL (1.6-2.4); Phosphorus 3.6 mg/dL (2.5-4.9); Potassium 4.5 mEq/L (3.5-5.1)
[2024-05-26 08:00] LABS: Blood Morphology Comment NOT SEEN (NOT SEEN); Platelet Estimate ADEQ; White Blood Cell Scan OK (OK)
[2024-05-26] MEDS: TAMSULOSIN 0.4 MG SR CAP PO SCH ×2 (08:18→21:50)
[2024-05-26] MEDS: HYDRALAZINE HCL 20 MG/ML VIAL IV PRN (08:19)
[2024-05-26] MEDS: MORPHINE 2 MG/ML SYR IV PRN (10:04)
[2024-05-26] MEDS: NA CHLORIDE 0.9% 1,000 ML IV SCH (11:46)
--- NOTE | 2024-05-26 13:37 | P.PN ---
Subjective Date of Service: 05/26/24 Chief Complaint: MICKY Patient had an episode of hematuria with complaining penile pain last night. Ruffin catheter was removed. Patient states he has been peeing without a Ruffin catheter. Physical Examination - Vital Signs Temperature: 98.6 F Blood Pressure: 183/91 Pulse: 96 Respirations: 16 Pulse Ox (%): 97 - Studies Laboratory Data (last 24 hrs) 05/25/24 12:42 Uric Acid 9.4 H Assessment And Plan - Plan Physical examination General: Alert and oriented x3, NAD, HEENT: Conjunctiva not pale, anicteric sclera Neck: Supple, no elevated JVD Heart: Heart sounds 1 and 2 normal, regular rhythm, normal rate, no pedal edema Lungs: Clear to auscultation bilaterally, adequate breath sounds bilaterally, no rhonchi or crackles. Abdomen: Soft, nondistended, nontender, normal bowel sounds. Extremities: No tenderness, no deformity Skin: Normal skin turgor, no rash, no nodules or ulcers. Neuro: No focal motor deficit. Normal speech. Psychiatry: Normal mood, no agitation. Bilateral hydronephrosis associated with distended bladder secondary to BPH MICKY secondary to obstruction from BPH -Reinsert Ruffin catheter -UA negative for infectious process -Bladder irrigation as needed for hematuria -Patient seen by nephrology Dr. Sosa. -Monitor renal function. -Hold NSAIDs at this time -Will need follow-up outpatient with Dr. Jin Chronic bilateral knee pain s/p surgery Arthritis -Reports taking ibuprophen daily -NSAID discontinued. DVT prophylaxis: SCD, no anticoagulation given hematuria. Advance directive: Full code.
--- NOTE | 2024-05-26 13:44 | CON ---
Date of Consultation: 05/26/2024 Reason For Consultation: Elevated BUN and creatinine, fluid management. History Of Present Illness: This is a pleasant 74-year-old gentleman with significant past medical h istory of osteoarthritis, hyperlipidemia, benign prostate hypertrophy, history of left femoral bypass secondary to laceration on the muscles. Patient had osteoarthritis with the right knee replacement back in 2008. Patient being on Advil PM for more than 15 years. According to the patient, patient w ent for his regular checkup done lab last week, found to have elevation in BUN and creatinine without any symptoms. For that reason, lab was repeated, confirmed the elevation. For that reason, patient referred to the hospital. As I mentioned, patient being taking Advil in a daily basis. Patient den ied any exposure to contrast. The workup over the night show bilateral hydronephrosis. According to the patient, his outpatient lab show PSA of 5.7. As by the patient, he has regular yearly lab witho ut mentioning about any kidney disease ever before. The patient had nocturia. The patient had previ ous admission to the hospital a few years back according to him. At that time, he has Ruffin inserted for 2-1/2 months. Yesterday, apparently Ruffin was inserted, developed hematuria. For that reason, Ruffin was removed. Patient continued to have hematuria. Past Medical History: Include: 1.Hyperlipidemia. 2.Benign prostate hypertrophy. 3.Osteoarthritis. Home Medications: Include Flonase and ibuprofen. Allergies: NO KNOWN DRUGS ALLERGY. Past Surgical History: 1.Left femoral bypass. 2.Bilateral knee replacement, 2008. Social History: Denied smoking. Denied alcohol. Denied drugs abuse. Review of Systems: Head and Neck: No red eye. No ear pain. GI: No nausea. No vomiting. : No polyuria. Has nocturia. 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 Respiratory: No shortness of breath. Cardiovascular: No chest pain. Endocrine: No polydipsia. Skin: No rash. Neuro: Has low back pain. Has knee pain. Musculoskeletal: Low back pain and knee pain. Physical Examination: General: When I saw the patient, patient lying in bed, comfortable, not on any distress. Vital Signs: Blood pressure 185/93, pulse of 94, afebrile. Chest: Clear to auscultation. Heart: S1, S2. Regular. Abdomen: Soft, nontender. Dullness on the suprapubic area. Again, patient obese, completely apprec iated. Extremities: No edema. Neurologic: Alert. No focality. No tremor. Laboratory Data: As of yesterday; WBC 8.4, hemoglobin is 12.6, sodium 143, potassium 4.3, bicarb 21, BUN 43, creatinine 5.1, GFR of 11, calcium 9.3. Urinalysis: Specific gravity 1.007, negative for i nfection. Reviewing the record for the patient, patient used to follow up with Urology, Dr. Estrada. Labs back in 2019 with normal kidney function, creatinine 0.9. Today's lab data: Sodium 146, potas sium 4.6, bicarb 23, BUN 48, creatinine 5.1, GFR of 11, calcium 9.3, PTH 129. WBC 10.8, hemoglobin 1 4.3. Current Medications: The patient on, it includes: 1.Flomax. 2.Tylenol. 3.Morphine. Assessment And Plan: 1.Acute kidney injury secondary to obstructive uropathy, superimposed with nonsteroidal use. No ure gerardo symptoms. No hyperkalemia. No acidosis. It looked to me there is component of chronic MARLINE seco ndary to nonsteroid supported with the marginal elevation in PTH. a.I had long discussion with the patient for the need to reinsert the Ruffin and monitor the patient. b.I am going to go ahead and increase the Flomax to b.i.d. and place the patient on finasteride. Ruslan conde will need urology evaluation. c.I agree with holding the nonsteroid. d.I am going to start the patient on hydration. e.I am going to go ahead and send for PC ratio and we will follow up the patient. f.I do not see the need to initiate any renal replacement therapy for the time being. We will follo w up recovery. 2.Obstructive uropathy with acute kidney injury. As above. 3.Dehydration with marginal hypernatremia. We will start hydration. 4.Benign prostate hypertrophy. Patient is going to need urology evaluation. Thank you, Dr. Lebron, for allowing us to participate in the care of your patient. MICHELLE/AMAIRANI Voice ID: [id number] Report ID: [id number]
[2024-05-26 17:44] LABS: UR PROTEIN 434.8 mg/dL (<11.9); Urine Protein/Creatinine Ratio 12.42 ratio (<0.15)
[2024-05-26] MEDS: carvediloL 6.25 MG TAB PO SCH (17:50)
[2024-05-26] MEDS: HYDROMORPHONE ORAL 2 MG TAB PO SCH (18:20)
[2024-05-26] MEDS ORDERED: carvediloL 6.25 MG TAB PO SCH (21:00)
[2024-05-26] MEDS: oxyBUTYnin chloride 5 MG TAB PO SCH (21:51)
[2024-05-27 06:02] LABS: Absolute Basophils 0.1 K/uL (0-0.5); Absolute Eosinophils 0.4 K/uL (0-0.5); Absolute Lymphocytes (CBC) 1.2 K/uL (0.7-4.9); Absolute Neutrophil 8.7 K/uL (1.8-8.0); Basophils % 0.7 % (0-1.3); Eosinophils % 3.3 % (0-4.4); Hematocrit 38.8 % (39.6-49.0); Hemoglobin 12.4 g/dL (13.6-17.9); Lymphocytes % 10.5 % (15.3-44.8); MCH 29.2 pg (27.0-35.0); MCHC 31.9 g/dL (32.0-36.0); MCV 91.7 fL (80-100); MPV 8.7 fL (7.6-11.3); Monocytes % 9.1 % (3.3-12.3); Neutrophils % 76.4 % (41.7-73.7); Platelets 265 thou/uL (152-406); RBC Red Blood Cell Count 4.23 M/uL (4.33-5.43); Red Cell Distribution Width 13.6 % (12.1-15.2)
[2024-05-27 06:13] LABS: Albumin 2.9 g/dL (3.4-5.0); Anion Gap 11.8 mEq/L (5.0-15.0); Magnesium 1.8 mg/dL (1.6-2.4); Phosphorus 3.5 mg/dL (2.5-4.9); Potassium 3.8 mEq/L (3.5-5.1); Uric Acid 8.7 mg/dL (3.5-7.2)
[2024-05-27 06:14] LABS: Thyroid Stimulating Hormone 3.82 uIU/mL (0.358-3.740)
[2024-05-27] MEDS: POTASSIUM CL SA 10 MEQ TAB PO ONE (08:39)
[2024-05-27] MEDS: FINASTERIDE 5 MG TAB PO SCH (08:40)
[2024-05-27] MEDS: MAGNESIUM SULFATE 1 gm IVPB 1 GM/100 ML BAG IV ONE (08:40)
--- NOTE | 2024-05-27 12:45 | P.PN ---
Subjective Date of Service: 05/27/24 Chief Complaint: MICKY Patient states her bladder pain is much better. He reports good sleep last night. Ruffin catheter in place draining bloodstained urine. It appears the urine is clearing compared to yesterday. Physical Examination - Vital Signs Temperature: 97.7 F Blood Pressure: 145/89 Pulse: 69 Respirations: 18 Pulse Ox (%): 98 Assessment And Plan - Plan Physical examination General: Alert and oriented x3, NAD, HEENT: Conjunctiva not pale, anicteric sclera Neck: Supple, no elevated JVD Heart: Heart sounds 1 and 2 normal, regular rhythm, normal rate, no pedal edema Lungs: Clear to auscultation bilaterally, adequate breath sounds bilaterally, no rhonchi or crackles. Abdomen: Soft, nondistended, nontender, normal bowel sounds. Genitourinary: Ruffin catheter in place Extremities: No tenderness, no deformity Skin: Normal skin turgor, no rash, no nodules or ulcers. Neuro: No focal motor deficit. Normal speech. Psychiatry: Normal mood, no agitation. Plan: Bilateral hydronephrosis associated with distended bladder secondary to BPH MICKY secondary to obstruction from BPH Hematuria -Ruffin catheter reinserted and draining bloodstained fluid. -UA negative for infectious process -Serum creatinine is trending down. -Continue IV hydration -Oral rehydration as tolerated. -Bladder irrigation as needed for hematuria -Nephrology is following -Monitor renal function. -Hold NSAIDs at this time -Will need follow-up outpatient with Dr. Jin Chronic bilateral knee pain s/p surgery Arthritis -Reports taking ibuprophen daily -NSAID discontinued. DVT prophylaxis: SCD, no anticoagulation given hematuria. Advance directive: Full code.
[2024-05-27] MEDS: DOCUSATE NA 100 MG CAP PO SCH (21:49)
--- NOTE | 2024-05-27 22:17 | PN ---
Date of Progress Note: 05/27/2024 Subjective: The patient had MICKY. Upon admission, creatinine was 5.7. Ruffin catheter was placed. S tarted on IV fluids. Creatinine improved to 4.3. The patient had a traumatic hematuria. Continue I V fluid. Physical Examination: Vital Signs: Temperature 98.3, pulse rate 67, blood pressure 140/83. General: Awake and alert, not in distress. Neck: Supple. No elevated JVD. Heart: Regular rate and rhythm. Normal S1, S2. Chest: Clear to auscultation bilaterally. No rales or wheezes. Abdomen: Soft, nontender. Has a Ruffin catheter with hematuria. Extremities: No edema. Medications: Include Coreg, finasteride, sodium chloride, oxybutynin, and Flomax. Laboratory Data: Sodium 141, potassium 3.8, BUN 46, creatinine 4.3. White count of 11, hemoglobin 1 2.4. Assessment And Plan: 1.Acute kidney injury, likely due to obstructive uropathy. Creatinine, no available labs since 2018. Creatinine was 0.9 in 2019. Continue IV fluid and Flomax and Ruffin catheter. Renally dose medication. Avoid NSAID and contrast. 2.Obstructive uropathy with bilateral hydronephrosis and enlarged prostate. Continue Ruffin and robyn steride. Urology evaluation. We will continue stool softener. 3.Hematuria, likely traumatic. Urine is clearing up. Monitor hemoglobin and hematocrit. 4.Hypertension. Blood pressure is controlled. Continue on Coreg. Thanks for allowing me to participate in patient's care. Total time spent 25 minutes including docum entation, reviewing labs, and placing order. ZEKE Voice ID: [id number] Report ID: [id number]
[2024-05-28 05:59] LABS: Absolute Eosinophils 0.3 K/uL (0-0.5); Absolute Lymphocytes (CBC) 0.8 K/uL (0.7-4.9); Absolute Monocytes 0.9 K/uL (0.1-1.3); Basophils % 0.4 % (0-1.3); Eosinophils % 3.5 % (0-4.4); Hematocrit 41.3 % (39.6-49.0); Hemoglobin 13.6 g/dL (13.6-17.9); Lymphocytes % 7.5 % (15.3-44.8); MCH 30.1 pg (27.0-35.0); MCHC 32.8 g/dL (32.0-36.0); MCV 91.5 fL (80-100); MPV 8.8 fL (7.6-11.3); Monocytes % 8.9 % (3.3-12.3); Neutrophils % 79.7 % (41.7-73.7); Platelets 280 thou/uL (152-406); RBC Red Blood Cell Count 4.51 M/uL (4.33-5.43); Red Cell Distribution Width 13.3 % (12.1-15.2)
[2024-05-28 06:12] LABS: Albumin 3.2 g/dL (3.4-5.0); Anion Gap 10.9 mEq/L (5.0-15.0); Magnesium 1.7 mg/dL (1.6-2.4); Phosphorus 3.4 mg/dL (2.5-4.9); Potassium 3.9 mEq/L (3.5-5.1)
[2024-05-28] MEDS: MAGNESIUM SULFATE 1 gm IVPB 1 GM/100 ML BAG IV ONE (07:04)
[2024-05-28] MEDS: POTASSIUM CL SA 10 MEQ TAB PO ONE (08:08)
--- NOTE | 2024-05-28 12:09 | P.PN ---
Subjective Date of Service: 05/28/24 Chief Complaint: MICKY Patient reports spasms in his thigh muscles, no other complaint. He denies bladder spasm. Urine is more clear from blood today. Physical Examination - Vital Signs Temperature: 98.4 F Blood Pressure: 143/83 Pulse: 90 Respirations: 16 Pulse Ox (%): 98 Assessment And Plan - Plan Physical examination General: Alert and oriented x3, NAD, Neck: Supple, no elevated JVD Heart: Heart sounds 1 and 2 normal, regular rhythm, normal rate, no pedal edema Lungs: Clear to auscultation bilaterally, adequate breath sounds bilaterally, no rhonchi or crackles. Abdomen: Soft, nondistended, nontender, normal bowel sounds. Genitourinary: Ruffin catheter in place Extremities: No tenderness. Skin: Normal skin turgor, no rash, no nodules or ulcers. Neuro: No focal motor deficit. Normal speech. Psychiatry: Normal mood, no agitation. Plan: Bilateral hydronephrosis associated with distended bladder secondary to BPH MICKY secondary to obstruction from BPH Hematuria -Ruffin catheter reinserted and draining. Urine is more clear from blood. -UA negative for infectious process -Serum creatinine continue to trend down. -Continue IV hydration -Oral rehydration as tolerated. -Bladder irrigation as needed for hematuria -Oxybutynin for bladder spasms -Nephrology is following -Monitor renal function. -Hold NSAIDs at this time -Will need follow-up outpatient with Dr. Jin Chronic bilateral knee pain s/p surgery Arthritis -Reports taking ibuprophen daily -NSAID discontinued. DVT prophylaxis: SCD, no anticoagulation given hematuria. Advance directive: Full code.
[2024-05-29 06:08] LABS: Absolute Basophils 0.1 K/uL (0-0.5); Absolute Eosinophils 0.4 K/uL (0-0.5); Absolute Lymphocytes (CBC) 0.7 K/uL (0.7-4.9); Absolute Monocytes 1.1 K/uL (0.1-1.3); Absolute Neutrophil 9.1 K/uL (1.8-8.0); Basophils % 0.5 % (0-1.3); Eosinophils % 3.5 % (0-4.4); Hematocrit 36.9 % (39.6-49.0); Hemoglobin 12.4 g/dL (13.6-17.9); Lymphocytes % 6.3 % (15.3-44.8); MCH 30.2 pg (27.0-35.0); MCHC 33.7 g/dL (32.0-36.0); MCV 89.7 fL (80-100); MPV 8.5 fL (7.6-11.3); Monocytes % 9.9 % (3.3-12.3); Neutrophils % 79.8 % (41.7-73.7); Platelets 273 thou/uL (152-406); RBC Red Blood Cell Count 4.11 M/uL (4.33-5.43); Red Cell Distribution Width 13.4 % (12.1-15.2)
[2024-05-29 06:14] LABS: Albumin 2.6 g/dL (3.4-5.0); Anion Gap 10.7 mEq/L (5.0-15.0); Magnesium 1.7 mg/dL (1.6-2.4); Phosphorus 3.5 mg/dL (2.5-4.9); Potassium 3.7 mEq/L (3.5-5.1)
[2024-05-29] MEDS: MAGNESIUM SULFATE 1 gm IVPB 1 GM/100 ML BAG IV ONE (09:00)
[2024-05-29] MEDS: POTASSIUM CL SA 10 MEQ TAB PO ONE (09:00)
--- NOTE | 2024-05-29 13:46 | P.PN ---
Subjective Date of Service: 05/29/24 Chief Complaint: MICKY Patient reports no complaints today. He denies bladder spasm. Urine is clear, no blood today. Physical Examination - Vital Signs Temperature: 99.3 F Blood Pressure: 141/70 Pulse: 72 Respirations: 22 Pulse Ox (%): 96 Assessment And Plan - Plan Physical examination General: Alert and oriented x3, NAD, Neck: No elevated JVD Heart: Heart sounds 1 and 2 normal, regular rhythm, normal rate, no pedal edema Lungs: Clear to auscultation bilaterally, adequate breath sounds bilaterally, no rhonchi or crackles. Abdomen: Soft, nondistended, nontender, normal bowel sounds. Genitourinary: Ruffin catheter in place Extremities: No tenderness. Skin: Normal skin turgor, no rash, no nodules or ulcers. Neuro: No focal motor deficit. Normal speech. Psychiatry: Normal mood, no agitation. Plan: Bilateral hydronephrosis associated with distended bladder secondary to BPH MICKY secondary to obstruction from BPH Hematuria -Ruffin catheter reinserted and draining. Urine is more clear from blood. -UA negative for infectious process -Serum creatinine continue to improve. -Continue IV hydration -Oral rehydration as tolerated. -Bladder irrigation as needed for hematuria -Oxybutynin for bladder spasms -Nephrology is following -Monitor renal function. -Hold NSAIDs at this time -Follow-up outpatient with Dr. Jin. Chronic bilateral knee pain s/p surgery Arthritis -Reports taking ibuprophen daily -NSAID discontinued. DVT prophylaxis: SCD, no anticoagulation given hematuria. Advance directive: Full code.
[2024-05-29] MEDS ORDERED: HYDROCODONE/APAP 10/325 TAB PO PRN (15:17)
[2024-05-29 21:28] VITALS: BMI 29.0
[2024-05-30 05:44] LABS: Absolute Basophils 0.1 K/uL (0-0.5); Absolute Eosinophils 0.4 K/uL (0-0.5); Absolute Lymphocytes (CBC) 0.8 K/uL (0.7-4.9); Absolute Monocytes 0.9 K/uL (0.1-1.3); Absolute Neutrophil 7.9 K/uL (1.8-8.0); Basophils % 0.9 % (0-1.3); Eosinophils % 3.5 % (0-4.4); Hematocrit 37.8 % (39.6-49.0); Hemoglobin 12.6 g/dL (13.6-17.9); Lymphocytes % 8.2 % (15.3-44.8); MCH 29.9 pg (27.0-35.0); MCHC 33.4 g/dL (32.0-36.0); MCV 89.5 fL (80-100); MPV 8.8 fL (7.6-11.3); Monocytes % 9.1 % (3.3-12.3); Neutrophils % 78.3 % (41.7-73.7); Nucleated Red Blood Cells % 0.1 % (0-0); Platelets 305 thou/uL (152-406); RBC Red Blood Cell Count 4.22 M/uL (4.33-5.43); Red Cell Distribution Width 13.3 % (12.1-15.2)
[2024-05-30 06:02] LABS: Albumin 2.5 g/dL (3.4-5.0); Anion Gap 13.7 mEq/L (5.0-15.0); Magnesium 1.9 mg/dL (1.6-2.4); Phosphorus 3.1 mg/dL (2.5-4.9); Potassium 3.7 mEq/L (3.5-5.1)
[2024-05-30] MEDS: POTASSIUM CL SA 10 MEQ TAB PO ONE (08:39)
[2024-05-30 08:40] VITALS: BP 155/87
[2024-05-30 09:20] VITALS: O2SAT 98
--- NOTE | 2024-05-30 09:28 | P.DS ---
Admission Date: 05/25/24 Discharge Date: 05/30/24 Disposition: ROUTINE DISCHARGE Discharge Condition: FAIR Reason for Admission: MICKY Brief History of Present Illness: Puneet Ferrer is a 74 year old male with history of left Femoral bypass, bilateral knee surgeries, who presented to the ED from his doctor's office where labs were drawn showing he has acute kidney injury. He reports using ibuprofen for his chronic knee pain. Patient denied any history of kidney disease. He reported COVID infection 1 month ago. He reports wearing a pull up for incontinence. Ruffin catheter placed in the ED, UOP [address] on [address] floor. Laboratory evaluation BUN/Creatinine 43/5.17, GFR 11, UA negative for infectious process. CT abdomen reports "bilateral hydronephrosis and distended bladder with markedly enlarged prostate concerning for acute urinary retention. " Patient was admitted for further management. Hospital Course: Patient admitted to the medical floor with the following medical problems addressed: Bilateral hydronephrosis associated with distended bladder secondary to BPH MICKY secondary to obstruction from BPH Hematuria -Patient requested initial Ruffin catheter to be removed due to hematuria and pain -Ruffin catheter was reinserted reinserted the following day, which initially drained bloodstained urine. His urine later cleared up. -UA negative for infectious process -Serum creatinine improved with IV hydration and Ruffin catheter in place. -Creatinine is down to 2.27 -Patient did not require bladder irrigation. -Oxybutynin for bladder spasms -She was also on tamsulosin for BPH -Nephrology evaluated patient and assisted with management. -Follow-up outpatient with Dr. Jin. Dr. Jin informed regarding patient's follow-up. -Patient's symptoms have improved, renal function improved. He is deemed stable for discharge. Chronic bilateral knee pain s/p surgery Arthritis -Reports taking ibuprophen daily -NSAID discontinued. Vital Signs/Physical Exam: Temp Pulse Resp BP Pulse Ox 97.5 F 71 16 155/87 H 98 05/30/24 04:00 05/30/24 08:39 05/30/24 04:00 05/30/24 08:39 05/30/24 04:00 General: Alert, In no apparent distress, Oriented x3 HEENT: Mucous membr. moist/pink Neck: Supple, JVD not distended Respiratory: Clear to auscultation bilaterally, Normal air movement Cardiovascular: No edema, Regular rate/rhythm, Normal S1 S2 Gastrointestinal: Normal bowel sounds, Soft and benign, Non-distended, No tenderness Musculoskeletal: No swelling, No tenderness Integumentary: No rashes, No cyanosis Neurological: Normal speech, Normal strength at 5/5 x4 extr Urinary: Ruffin catheter Laboratory Data at Discharge: WBC 10.10 thou/uL (4.3-10.9) 05/30/24 04:38 Hgb 12.6 g/dL (13.6-17.9) L 05/30/24 04:38 Hct 37.8 % (39.6-49.0) L 05/30/24 04:38 Plt Count 305 thou/uL (152-406) 05/30/24 04:38 Sodium 141 mEq/L (136-145) 05/30/24 04:38 Potassium 3.7 mEq/L (3.5-5.1) 05/30/24 04:38 BUN 35 mg/dL (7-18) H 05/30/24 04:38 Creatinine 2.29 mg/dL (0.70-1.30) H 05/30/24 04:38 Glucose 103 mg/dL (74-106) 05/30/24 04:38 Uric Acid 8.7 mg/dL (3.5-7.2) H 05/27/24 05:25 Phosphorus 3.1 mg/dL (2.5-4.9) 05/30/24 04:38 Magnesium 1.9 mg/dL (1.6-2.4) 05/30/24 04:38 Total Bilirubin 0.7 mg/dL (0.2-1.0) 05/25/24 12:42 AST 15 U/L (15-37) 05/25/24 12:42 ALT 22 U/L (16-61) 05/25/24 12:42 Alkaline Phosphatase 78 U/L (45-117) 05/25/24 12:42 Home Medications: Tamsulosin [Flomax*] 1 cap PO DAILY 05/26/24 Docusate [Colace Cap*] 100 mg PO BID #60 cap 05/30/24 Finasteride [Proscar*] 5 mg PO DAILY #30 tab 05/30/24 Hydrocodone 10/APAP 325 [[place] 10/325*] 1 tab PO Q4H PRN #15 tab 05/30/24 carvediloL [Coreg*] 6.25 mg PO BID #60 tab 05/30/24 oxyBUTYnin chloride [Ditropan*] 5 mg PO BEDTIME #30 tab 05/30/24 New Medications: Docusate [Colace Cap*] 100 mg PO BID #60 cap carvediloL [Coreg*] 6.25 mg PO BID #60 tab oxyBUTYnin chloride [Ditropan*] 5 mg PO BEDTIME #30 tab Hydrocodone 10/APAP 325 [[place] 10/325*] 1 tab PO Q4H PRN #15 tab PRN Reason: Pain Scale 8-10 (Severe) Finasteride [Proscar*] 5 mg PO DAILY #30 tab Diet: AHA Activity: Ad vinicio Followup: Scooter Sosa MD [ACTIVE - CAN ADMIT] - 1-2 Weeks Rocael Muñoz [ACTIVE - CAN ADMIT] - 1-2 Weeks Mildred Lima [Primary Care Provider] - 1-2 Weeks Time spent managing pt's care (in minutes): 38
[2024-05-30 09:30] VITALS: TEMP 98
--- NOTE | 2024-05-30 18:14 | PN ---
Date of Progress Note: 05/30/2024 Chief Complaint: Acute kidney injury. Subjective: Serum creatinine upon admission was up to 5.7. Patient had the Ruffin catheter was place d for urinary retention and the patient was on IV fluids to treat acute kidney injury. The patient d eveloped obstructive uropathy, bladder outlet obstruction, and he has currently indwelling Ruffin cath eter. Review of Systems: Denies chest pain, palpitation. Physical Examination: Lungs: Clear to auscultation bilaterally. Heart: S1, S2. Abdomen: Soft, benign. Not tender. Extremities: No edema. Impression And Plan: 1.Acute kidney injury due to obstructive uropathy, bladder outlet obstruction, and hypovolemia. The patient will continue Ruffin catheter and he will see urologist for evaluation. Continue adequate hy dration. The patient was started on IV fluids for acute kidney injury and volemia currently is repla concha. 2.Obstructive uropathy with bilateral hydronephrosis and enlarged prostate. Continue Ruffin catheter and continue finasteride. 3.Hematuria. The patient will follow up with urologist for hematuria and bladder outlet obstruction . 4.Hypertension. Blood pressure control is controlled. Continue Coreg and avoid LILIAM inhibitor and a void angiotensin-receptor coty due to risk of hyperkalemia in setting of acute kidney injury with bladder outlet obstruction . IMTIAZ/AMAIRANI Voice ID: [id number] Report ID: [id number]
== END 2024-05-30 10:13 | disposition home or self-care (01) | DRG 683 ==
LOC: ER 12:11 → ERHOLD 17:42 → 2ND 21:59
PROVIDERS: ADMIT Internal Medicine; ATTEND Internal Medicine
PROC: 0T9B70Z Drainage of Bladder with Drainage Device, Via Natural or Artificial Opening (ICD-10-PCS; principal; 2024-05-25)
DX: N17.9 Acute kidney failure, unspecified (principal); E87.0 Hyperosmolality and hypernatremia; N13.30 Unspecified hydronephrosis; M13.862 Other specified arthritis, left knee; M13.861 Other specified arthritis, right knee; N32.89 Other specified disorders of bladder; E78.5 Hyperlipidemia, unspecified; E86.0 Dehydration; I10 Essential (primary) hypertension; E86.1 Hypovolemia; N40.0 Benign prostatic hyperplasia without lower urinary tract symptoms; R31.9 Hematuria, unspecified; R33.9 Retention of urine, unspecified; Z86.16 Personal history of COVID-19; Z96.653 Presence of artificial knee joint, bilateral
CPT/HCPCS: 36415; 51702; 74176; 76377; 80048; 80053; 80069; 81001; 82550; 82570; 82947; 83735; 83970; 84100; 84156; 84439; 84443; 84550; 85025; 99284; J0360; J1644; J2270; J3475; J7030